=== PATIENT | female | born 1955 | race American Indian/Alaskan Native ===

== ENCOUNTER 2017-09-13 10:31 | Outpatient (CLI) | payer MEDICARE, OTHER ==
--- NOTE | 2017-09-13 15:34 | Mammography Report ---
BILATERAL DIGITAL SCREENING MAMMOGRAM with CAD: 09/13/17 CLINICAL: Routine screening.The patient has lymphoma and has a right-sided port. COMPARISON:None available. However, a prior mammogram was apparently done in [place], [place]. FINDINGS: The breasts are mostly fatty. Left asymmetries require comparison with the prior mammogram or additional imaging.No architectural distortion or suspicious calcifications.The right breast is negative. IMPRESSION: Left asymmetries requiring further evaluation. BI-RADS CATEGORY: 0 -- Additional Evaluation Required RECOMMENDATION: Comparison with a previous mammogram. We will attempt to obtain a prior mammogram for comparison. If we do not obtain a prior mammogram within 30 days, a revised report will be issued recommending a recall for additional imaging of the left breast. Please be advised that the patient should not schedule an appointment for return until adequate time (at least 2 weeks) has passed for us to obtain the prior mammogram. ACR BI-RADS MAMMOGRAPHIC CODES: 0 = Needs additional imaging evaluation; 1 = Negative; 2 = Benign; 3 = Probably benign; 4 = Suspicious; 5 = Malignant; 6 = Known biopsy-proven malignancy COMMENT: 1. Dense breast tissue, i.e., adenosis, fibrocystic changes, etc., may obscure an underlying neoplasm. 2. Approximately 10% of cancers are not detected with mammography. 3. A negative mammography report should not delay biopsy if a clinically suspicious mass is present. COMMENT: Patient follow-up letters are generated via our [employer] application.
== END 2017-09-13 10:32 | disposition home or self-care (01) ==
LOC: MAMMO 10:31
PROVIDERS: ATTEND Obstetrics & Gynecology
DX: Z12.31 Encounter for screening mammogram for malignant neoplasm of breast (principal)
CPT/HCPCS: 77067

== ENCOUNTER 2018-12-18 11:29 | Outpatient (CLI) | payer MEDICARE, OTHER ==
--- NOTE | 2018-12-18 14:53 | Mammography Report ---
DIGITAL SCREENING MAMMOGRAM WITH CAD, 12/18/2018 INDICATION: Routine screening mammography. TECHNIQUE: Digital bilateral 2D mammography was obtained in the craniocaudal and mediolateral obliq ue projections. This examination was interpreted with the benefit of Computer-Aided Detection analysi s. COMPARISON: 09/13/2017 FINDINGS: Breast Density: The breasts are almost entirely fatty. There is no evidence of dominant mass, suspicious calcifications or architectural distortion in eithe r breast. Mild left upper inner benign scar related to an [id number] which has been removed. IMPRESSION: No mammographic evidence of malignancy. Follow up recommendation: Routine yearly BI-RADS Category 2: Benign. A "normal" or negative report should not discourage follow up or biopsy of a clinically significant f inding. A written summary of these findings will be mailed to the patient. The patient will be entered into a mammography reporting system which will generate a reminder letter for the patient's next appointmen t at the appropriate interval. The [employer] recommends yearly mammograms starting at age 40 and continuing as l claudia as a woman is in good health. Breast MRI is recommended for women with an approximate 20-25% or greater lifetime risk of breast cancer, including women with a strong family history of breast or ova chrissy cancer or who have been treated for Hodgkin's disease. Signer Name: Samuel Rodriguez MD Signed: 12/18/2018 2:48 PM Workstation Name: [id number]
== END 2018-12-18 11:30 | disposition home or self-care (01) ==
LOC: MAMMO 11:29
PROVIDERS: ATTEND Obstetrics & Gynecology
DX: Z12.31 Encounter for screening mammogram for malignant neoplasm of breast (principal)
CPT/HCPCS: 77067

== ENCOUNTER 2019-01-14 15:47 | Emergency (ER) | payer MEDICARE ==
--- NOTE | 2019-01-14 16:16 | Event Note ---
ED Screening Note Date of service: 01/14/19 Time: 16:14 ED Screening Note: 64 y/o female comes in for symptomatic HTN. Has chest pain GREGORY and SOB This initial assessment/diagnostic orders/clinical plan/treatment(s) is/are subject to change based on patients health status, clinical progression and re- assessment by fellow clinical providers in the ED. Further treatment and workup at subsequent clinical providers discretion. Patient/guardian urged not to elope from the ED as their condition may be serious if not clinically assessed and managed. Initial orders include:
[2019-01-14 16:54] LABS: Basophils % (Auto) 0.5 % (0.0-1.8); Eosinophils # (Auto) 0.1 K/mm3 (0.0-0.4); Eosinophils % (Auto) 1.9 % (0.0-4.3); Hematocrit 42.1 % (30.3-42.9); Hemoglobin 13.7 gm/dl (10.1-14.3); Lymphocytes # (Auto) 2.2 K/mm3 (1.2-5.4); Lymphocytes % (Auto) 30.5 % (13.4-35.0); Mean Corpuscular HGB Conc 33 % (30-34); Mean Corpuscular Volume 90 fl (79-97); Monocytes # (Auto) 0.8 K/mm3 (0.0-0.8); Monocytes % (Auto) 10.5 % (0.0-7.3); Platelet Count 129 K/mm3 (140-440)
[2019-01-14 17:06] LABS: BUN/Creatinine Ratio 15; Blood Urea Nitrogen 12 mg/dL (7-17); Calcium 9.3 mg/dL (8.4-10.2); Hemolysis Index 6
--- NOTE | 2019-01-14 17:22 | XRay Report ---
CHEST 2 VIEWS INDICATION: chest pain and sob. COMPARISON: 01/04/2018 FINDINGS: Support devices: None. Heart: Mild cardiomegaly. Lungs/pleura: Persistent moderate elevation of the left hemidiaphragm with mild streaky airspace dise ase in the left lung base No pneumothorax. Additional findings: None. IMPRESSION: 1. Streaky airspace disease in the left lower lobe this patient with persistent moderate elevation of the left hemidiaphragm. 2. Stable cardiomegaly. Signer Name: Escobar Early MD Signed: 01/14/2019 5:18 PM Workstation Name: [id number]
[2019-01-14] MEDS ORDERED: cloNIDine 0.1 MG TAB PO ONE (21:43)
--- NOTE | 2019-01-14 22:15 | Emergency Department Report ---
ED General Adult HPI - General Chief complaint: High BP Stated complaint: CHEST PAIN/HBP/HEADACHE Time Seen by Provider: 01/14/19 16:14 Source: patient Mode of arrival: Ambulatory Limitations: No Limitations - History of Present Illness Initial comments: 64-year-old female with history of lymphoma, hypertension presents ED with elevated blood pressure. Patient states her blood pressure has been 160-170s over 100s since yesterday. She reports mild right-sided headache, rates pain 5 out of 10, and nausea. Patient reports she has been compliant with her BP meds. Patient states she called her PCPs office today and was instructed to come to the ER. Patient denies any shortness of breath. 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 She denies any current chest pain. -: days(s) (2) Location: head, chest Quality: aching Consistency: intermittent Improves with: none Worsens with: none Associated Symptoms: chest pain, headaches, nausea/vomiting Treatments Prior to Arrival: none - Related Data Previous Rx's Medication Instructions Recorded Last Taken Type cloNIDine [Catapres] 0.1 mg PO QDAY PRN #20 tablet 01/14/19 Unknown Rx Allergies Allergy/AdvReac Type Severity Reaction Status Date / Time Penicillins Allergy Unknown Verified 01/14/19 15:52 ED Review of Systems ROS: Stated complaint: CHEST PAIN/HBP/HEADACHE Other details as noted in HPI Comment: All other systems reviewed and negative Constitutional: denies: chills, fever Respiratory: denies: shortness of breath Cardiovascular: chest pain Gastrointestinal: nausea. denies: vomiting Neurological: headache. denies: weakness, numbness, paresthesias ED Past Medical Hx - Past Medical History Hx Hypertension: Yes Additional medical history: Lymphoma in remission - Surgical History Past Surgical History?: Yes Additional Surgical History: tumor removal - Social History Smoking Status: Never Smoker Substance Use Type: None - Medications Home Medications: Home Medications Medication Instructions Recorded Confirmed Last Taken Type cloNIDine [Catapres] 0.1 mg PO QDAY PRN #20 tablet 01/14/19 Unknown Rx ED Physical Exam - General Limitations: No Limitations General appearance: alert, in no apparent distress - Head Head exam: Present: atraumatic, normocephalic - Eye Eye exam: Present: normal appearance, EOMI - ENT ENT exam: Present: mucous membranes moist - Neck Neck exam: Present: normal inspection, full ROM. Absent: meningismus - Respiratory Respiratory exam: Present: normal lung sounds bilaterally. Absent: respiratory distress - Cardiovascular Cardiovascular Exam: Present: regular rate, normal rhythm - GI/Abdominal GI/Abdominal exam: Present: soft. Absent: distended, tenderness - Extremities Exam Extremities exam: Present: normal inspection, full ROM - Neurological Exam Neurological exam: Present: alert, oriented X3, CN II-XII intact. Absent: motor sensory deficit - Psychiatric Psychiatric exam: Present: normal affect, normal mood - Skin Skin exam: Present: warm, dry, intact, normal color ED Course Vital Signs 01/14/19 01/14/19 01/14/19 15:53 21:20 21:49 Temperature 98.1 F 97.9 F Pulse Rate 92 H 81 77 Respiratory 18 20 Rate Blood Pressure 178/94 181/106 Blood Pressure 186/102 [Right] O2 Sat by Pulse 96 98 Oximetry 01/14/19 01/14/19 23:22 23:45 Temperature Pulse Rate 88 Respiratory 19 18 Rate Blood Pressure Blood Pressure 123/92 [Right] O2 Sat by Pulse 96 Oximetry ED Medical Decision Making - Lab Data Result diagrams: 01/14/19 16:31 01/14/19 16:31 - EKG Data -: EKG Interpreted by Me EKG shows normal: sinus rhythm, axis, intervals, QRS complexes, ST-T waves Rate: normal - EKG Data Interpretation: no acute changes - Radiology Data Radiology results: report reviewed, image reviewed - Medical Decision Making 64-year-old female with hypertension, discovered at home on home device. Patient reports compliance with her BP meds. She reports slight headache, however, neuro exam is nonfocal and normal. I doubt that patient has any intracranial abnormality. Patient initially reported chest tightness, however states that it has resolved currently. She states that this is something that she has experienced multiple times in the past since her treatment for lymphoma. EKG shows no ST changes, troponin is normal. Patient given clonidine 0.1 mg with improvement of blood pressure. Patient advised to follow-up with her primary care physician. Return precautions given. - Differential Diagnosis ACS, essential HTN, Critical care attestation.: If time is entered above; I have spent that time in minutes in the direct care of this critically ill patient, excluding procedure time. ED Disposition Clinical Impression: Hypertension Disposition: DC-01 TO HOME OR SELFCARE Is pt being admited?: No Condition: Stable Instructions: Hypertension (ED) Prescriptions: cloNIDine [Catapres] 0.1 mg PO QDAY PRN #20 tablet PRN Reason: elevated blood pressure Referrals: PRIMARY CARE, [Primary Care Provider] - 2-3 Days Time of Disposition: 23:12
[2019-01-14] MEDS ORDERED: IBUPROFEN 800 MG TAB PO ONE (23:10)
[2019-01-15 00:13] VITALS: BP 123/92
== END 2019-01-14 23:45 | disposition home or self-care (01) ==
LOC: ED 15:47
DX: I10 Essential (primary) hypertension (principal); R07.89 Other chest pain; R11.2 Nausea with vomiting, unspecified; Z85.72 Personal history of non-Hodgkin lymphomas; Z79.899 Other long term (current) drug therapy; Z88.0 Allergy status to penicillin
CPT/HCPCS: 36415; 71046; 80048; 84484; 85025; 93005; 93010

== ENCOUNTER 2019-04-07 11:59 | Outpatient (CLI) | payer MEDICARE ==
--- NOTE | 2019-04-07 13:09 | XRay Report ---
CHEST 2 VIEWS INDICATION: BRONCHITIS. COMPARISON: 01/14/2019 and 01/04/2018 FINDINGS: Support devices: None. Heart: Stable cardiomegaly. Pulmonary vasculature: Normal. Lungs/pleura: Persistent left lower lobe airspace disease with silhouetting of the left hemidiaphragm and the left heart border along with opacification of the left costophrenic angle. The left upper lo be is clear. The right lung is clear. No pneumothorax. Additional findings: None. IMPRESSION: 1. Chronic left lower lobe airspace opacification. 2. Consider CT chest for further evaluation. 3. Cardiomegaly but no CHF. Signer Name: Samuel Rodriguez MD Signed: 04/07/2019 1:05 PM Workstation Name: [id number]
== END 2019-04-07 12:00 | disposition home or self-care (01) ==
LOC: XRAY 11:59
PROVIDERS: ATTEND Family Medicine
DX: I51.7 Cardiomegaly (principal); J40 Bronchitis, not specified as acute or chronic
CPT/HCPCS: 71046

== ENCOUNTER 2019-12-22 10:31 | Outpatient (CLI) | payer MEDICARE, OTHER ==
--- NOTE | 2019-12-22 16:08 | Mammography Report ---
DIGITAL SCREENING MAMMOGRAM WITH CAD, 12/22/2019 INDICATION: Routine screening mammography. TECHNIQUE: Digital bilateral 2D mammography was obtained in the craniocaudal and mediolateral obliq ue projections. This examination was interpreted with the benefit of Computer-Aided Detection analysi s. COMPARISON: Prior mammograms 12/18/2018 and 09/13/2017 FINDINGS: Breast Density: The breasts are almost entirely fatty. There is no evidence of dominant mass, suspicious calcifications or architectural distortion in eithe r breast. There has been no significant change compared with the prior examinations. IMPRESSION: Follow up recommendation: Routine yearly BI-RADS Category 1: Negative. A "normal" or negative report should not discourage follow up or biopsy of a clinically significant f inding. A written summary of these findings will be mailed to the patient. The patient will be entered into a mammography reporting system which will generate a reminder letter for the patient's next appointmen t at the appropriate interval. The [employer] recommends yearly mammograms starting at age 40 and continuing as l claudia as a woman is in good health. Breast MRI is recommended for women with an approximate 20-25% or greater lifetime risk of breast cancer, including women with a strong family history of breast or ova chrissy cancer or who have been treated for Hodgkin's disease. Signer Name: Kat Jasmine MD Signed: 12/22/2019 4:04 PM Workstation Name: [id number]
== END 2019-12-22 10:32 | disposition home or self-care (01) ==
LOC: MAMMO 10:31
PROVIDERS: ATTEND Obstetrics & Gynecology
DX: Z12.31 Encounter for screening mammogram for malignant neoplasm of breast (principal)
CPT/HCPCS: 77067

== ENCOUNTER 2020-05-17 15:18 | Outpatient (CLI) | payer MEDICARE, OTHER ==
--- NOTE | 2020-05-17 16:24 | XRay Report ---
CHEST 2 VIEWS INDICATION: SOB, CHEST PAIN. COMPARISON: 04/07/2019 FINDINGS: Support devices: None. Heart: Stable cardiomegaly Lungs/pleura: Previously described left lower lobe opacity is unchanged. This appears to represent an elevated left hemidiaphragm with compressive atelectasis at the left lung base and lingula. The krista gs are clear otherwise. No pleural effusion or pneumothorax. Additional findings: None. IMPRESSION: Stable cardiomegaly and elevated left hemidiaphragm. No significant change since 04/07/2019. Signer Name: Cash Resendiz Jr, MD Signed: 05/17/2020 4:19 PM Workstation Name: [id number]
== END 2020-05-17 15:19 | disposition home or self-care (01) ==
LOC: XRAY 15:18
PROVIDERS: ATTEND Family Medicine
DX: J98.11 Atelectasis (principal)
CPT/HCPCS: 71046

== ENCOUNTER 2020-12-22 10:45 | Outpatient (CLI) | payer MEDICARE, OTHER ==
--- NOTE | 2020-12-22 15:30 | Mammography Report ---
DIGITAL SCREENING MAMMOGRAM WITH CAD, 12/22/2020 CLINICAL INFORMATION / INDICATION: Routine screening mammography. SCREENING MAMMO TECHNIQUE: Digital bilateral 2D mammography was obtained in the craniocaudal and mediolateral obliqu e projections. This examination was interpreted with the benefit of Computer-Aided Detection analysis . COMPARISON: 01/30/2012 through 12/22/2019. FINDINGS: Breast Density: The breasts are almost entirely fatty. No dominant mass, suspicious calcifications, or architectural distortion in either breast. Mild benign-appearing nodularity and calcifications bilaterally, left greater than right, have not ch anged. IMPRESSION: No mammographic evidence of malignancy. Follow up recommendation: Routine yearly BI-RADS Category 2: Benign. A "normal" or negative report should not discourage follow up or biopsy of a clinically significant f inding. A written summary of these findings will be mailed to the patient. The patient will be entered into a mammography reporting system which will generate a reminder letter for the patient's next appointmen t at the appropriate interval. The [employer] recommends yearly mammograms starting at age 40 and continuing as l claudia as a woman is in good health. Breast MRI is recommended for women with an approximate 20-25% or greater lifetime risk of breast cancer, including women with a strong family history of breast or ova chrissy cancer or who have been treated for Hodgkin's disease. Signer Name: Harpal Ortiz MD Signed: 12/22/2020 3:26 PM Workstation Name: [id number]
== END 2020-12-22 10:46 | disposition home or self-care (01) ==
LOC: SPVWC 10:45
PROVIDERS: ATTEND Obstetrics & Gynecology
DX: Z12.31 Encounter for screening mammogram for malignant neoplasm of breast (principal)
CPT/HCPCS: 77067

== ENCOUNTER 2021-04-07 08:37 | Day surgery (SDC) | payer MEDICARE, OTHER ==
[2021-04-07 10:03] LABS: Basophils % (Auto) 0.3 % (0.0-1.8); Eosinophils # (Auto) 0.1 K/mm3 (0.0-0.4); Eosinophils % (Auto) 1.1 % (0.0-4.3); Hematocrit 42.9 % (30.3-42.9); Hemoglobin 13.5 gm/dl (10.1-14.3); Lymphocytes # (Auto) 2.3 K/mm3 (1.2-5.4); Mean Corpuscular HGB Conc 31 % (30-34); Mean Corpuscular Volume 89 fl (79-97); Monocytes # (Auto) 0.8 K/mm3 (0.0-0.8); Monocytes % (Auto) 8.4 % (0.0-7.3); Platelet Count 161 K/mm3 (140-440); Red Cell Distribution Width 14.4 % (13.2-15.2)
[2021-04-07 10:14] LABS: INR 0.87 (0.87-1.13)
[2021-04-07 10:36] LABS: BUN/Creatinine Ratio 14; Blood Urea Nitrogen 13 mg/dL (7-17); Calcium 9.1 mg/dL (8.4-10.2); Hemolysis Index 5
--- NOTE | 2021-04-07 10:58 | Electrocardiograph Report ---
[facility] Test Date: 2021-04-07 Test Time: 09:06:09 Pat Name: ALONSO QUICK Department: Room: Gender: F Marketing Intern: BOZENA : 1955 Requested By: CASSIE DELEON Order Number: [id number] Reading MD: Mau Avina Measurements Intervals Vernon Rate: 97 P: 58 MS: 168 QRS: -24 QRSD: 105 T: 29 QT: 386 QTc: 490 Interpretive Statements Sinus rhythm Consider anterior infarct No previous ECG available for comparison Electronically Signed On 04-07-2021 10:58:19 EST by Mau Avina
[2021-04-07] MEDS: SODIUM CHLORIDE 0.9% 500 ML 500 ML IV SCH ×2 (11:05→12:44)
[2021-04-07] MEDS ORDERED: HEPARIN/NS 5000 UNIT/500ML 1,000 ML IR ONE (12:20)
[2021-04-07] MEDS ORDERED: HEPARIN 10,000 UNITS/10 ML VIAL ONE (12:20)
[2021-04-07] MEDS ORDERED: VERAPAMIL 5 MG/2 ML INJ ONE (12:20)
[2021-04-07] MEDS ORDERED: NITROGLYCERIN SYRINGE 3 ML ONE (12:21)
[2021-04-07] MEDS ORDERED: LIDOCAINE (2%) 20 MG/1 ML VIAL 20 ML MDV INFILTRATI ONE (12:21)
[2021-04-07] MEDS ORDERED: fentaNYL 100 MCG/2 ML INJ ONE (12:27)
[2021-04-07] MEDS ORDERED: MIDAZOLAM 2 MG/2 ML INJ ONE (12:27)
[2021-04-07] MEDS ORDERED: traMADol 50 MG TAB PO PRN (13:28)
[2021-04-07] MEDS ORDERED: cloNIDine 0.1 MG TAB PO PRN (13:29)
[2021-04-07] MEDS ORDERED: SODIUM CHLORIDE 0.9% 1000 ML 1,000 ML IV SCH (13:30)
--- NOTE | 2021-04-07 13:31 | Discharge Summary ---
Short Stay Discharge Plan Activity: advance as tolerated Weight Bearing Status: Partial Weight Bearing Diet: low fat, low cholesterol, low salt Wound: keep clean and dry Special Instructions: no heavy lifting (3 days) Follow up with: CHARLY SANTACRUZ MD [Staff Physician] - 7 Days CASSIE DELEON MD [Primary Care Provider] - 7 Days
--- NOTE | 2021-04-07 13:40 | Cardiac Catherization Report ---
DATE OF SERVICE: 04/07/2021 REASON FOR PROCEDURE: Abnormal thallium stress test. PROCEDURES: 1. Left heart catheterization. 2. Selective left and right coronary angiography. 3. Left ventricular angiography. 4. Sedation time start 13:02, end 13:20. DESCRIPTION OF PROCEDURE: The patient was prepped and draped in a sterile fashion after informed consent. The right radial cath site was prepped and draped after negative Kavin's test. The right radial artery was entered using Seldinger technique followed by placement of a 6-[place] hydrophilic sheath. Routine radial cocktail was administered via the sheath. Selective left and right coronary angiography was performed using #3.5 left Cory and #4 right Cory. A pigtail catheter was used for left ventricular angiography. The catheters were then removed, sheath removed and hemostasis achieved using a TR band. The patient was returned to the postprocedure unit in stable condition. There were no complications. FINDINGS: HEMODYNAMICS: Left ventricular end-diastolic pressure was 19, following coronary angiography. Ascending aortic pressure was 160/99. There was no significant pressure gradient on pullback across the aortic valve. CORONARY ANGIOGRAPHY: Left main coronary artery was angiographically normal. Left anterior descending artery and its diagonal branches were angiographically normal. The circumflex artery and its obtuse marginal branches were angiographically normal. The right coronary artery was dominant, contained only mild luminal irregularities. There was left ventricular systolic function was at the lower limits of normal, ejection fraction 50-55%. CONCLUSION: 1. Essentially angiographically normal coronary arteries. 2. Left ventricular systolic function at the lower limits of normal, ejection fraction 50-55%. RECOMMENDATIONS: Risk factor modification and medical therapy. TID: [id number] RECEIPT: [id number] YOVANI/PILAR
[2021-04-07 16:30] VITALS: BP 161/95
== END 2021-04-07 16:59 | disposition home or self-care (01) ==
LOC: CATHLABREC 08:37
PROVIDERS: ATTEND Internal Medicine Cardiovascular Disease
DX: R94.39 Abnormal result of other cardiovascular function study (principal); I10 Essential (primary) hypertension; K21.9 Gastro-esophageal reflux disease without esophagitis; M06.9 Rheumatoid arthritis, unspecified; Z88.5 Allergy status to narcotic agent; Z88.8 Allergy status to other drugs, medicaments and biological substances; Z88.0 Allergy status to penicillin; Z88.2 Allergy status to sulfonamides; Z79.899 Other long term (current) drug therapy; Z79.82 Long term (current) use of aspirin; Z87.01 Personal history of pneumonia (recurrent); Z90.49 Acquired absence of other specified parts of digestive tract; Z98.890 Other specified postprocedural states
CPT/HCPCS: 36415; 80048; 85025; 85610; 85730; 93005; 93010; 93458; 99156; C1894; J1644; J1815; J2250; J3010; J3490; J7030; J7040; Q0162; Q9967

== ENCOUNTER 2021-09-14 09:57 | Outpatient (CLI) | payer MEDICARE ==
--- NOTE | 2021-09-14 12:27 | Vascular Lab Report ---
DUPLEX DOPPLER LOWER EXTREMITY VEINS, RIGHT INDICATION / CLINICAL INFORMATION: RT.LEG SWELLING. TECHNIQUE: Duplex doppler imaging was performed through the veins of the right lower extremity using venous compression and other maneuvers. COMPARISON: None available. FINDINGS: RIGHT COMMON FEMORAL VEIN: Negative. RIGHT FEMORAL VEIN: Negative. RIGHT POPLITEAL VEIN: Negative. RIGHT CALF VEINS: Negative. ADDITIONAL FINDINGS: None. IMPRESSION: 1. No sonographic evidence for DVT in the right lower extremity. Scribed by: Betty Romo RDMS, ROYA, CHRISTY Scribed: 09/14/2021 10:44 AM I have reviewed the images, agree with this report, and edited this report as needed. Signer Name: Domenic Drake MD Signed: 09/14/2021 12:23 PM Workstation Name: [id number]
== END 2021-09-14 09:58 | disposition home or self-care (01) ==
LOC: VAS 09:57
PROVIDERS: ATTEND Specialist
DX: I82.409 Acute embolism and thrombosis of unspecified deep veins of unspecified lower extremity (principal); R60.0 Localized edema